=== PATIENT | female | born 1990 | race Caucasian/White ===

== ENCOUNTER 2017-11-08 22:51 | Emergency (ER) | payer BC ==
[~2017-11-08] VITALS: Ht 160 cm; Wt 120.2 kg
[~2017-11-08 22:51] MED LIST: FAMO-90 PO; NAPR375T2 PO; ORPH100T48 PO; TRAM50TA1 PO; ZOLP10TA1 PO
[2017-11-08 22:59] VITALS: BP 135/90
--- NOTE | 2017-11-08 23:03 | NUR ---
TO LOBBY AA/W BED, AMBULATORY, VSS, ERMD NOTED
--- NOTE | 2017-11-09 02:57 | NUR ---
PT AMBULATED TO BED 6
--- NOTE | 2017-11-09 03:00 | NUR ---
27/ CAME IN W C/O LEFT LOWER ABD PAIN RADIAITING TO BACK S/P MECHANICAL FALL ON FRIDAY. ALSO REPORTS SHE WAS SPOTTING AND HAD BLOOD CLOT THIS AM. DENIES N/V/D, FEVER/CHILLS. BS ACTIVE X4, ABD SOFT, ROUND -TENDERNESS. DENIES LOC/HEAD INJURY. LMP 10/05/17, REPORTS SHE MIGHT BE . DENIES PMH
[2017-11-09] MEDS ORDERED: KETOROLAC 15 MG/ML VIAL IM ONE (05:35)
[2017-11-09] MEDS ORDERED: FAMOTIDINE 20 MG TAB PO ONE (05:35)
[2017-11-09] MEDS ORDERED: KETOROLAC 30 MG/ML VIAL IM ONE (05:45)
--- NOTE | 2017-11-09 06:27 | NUR ---
Patient discharged with v/s stable. Written and verbal after care instructions given and explained. Patient alert, oriented and verbalized understanding of instructions. Ambulatory with steady gait. All questions addressed prior to discharge. ID band removed. Patient advised to follow up with PMD. Rx of REGLAN, PEPCID given. Patient educated on indication of medication including possible reaction and side effects. Opportunity to ask questions provided and answered.
[2017-11-09 06:28] VITALS: BP 109/74
== END 2017-11-09 06:27 | disposition home or self-care (01) ==
LOC: MED 22:51
DX: R10.32 Left lower quadrant pain (principal); Z88.8 Allergy status to other drugs, medicaments and biological substances; Z79.899 Other long term (current) drug therapy
CPT/HCPCS: 81002; 81025; 96372; 99283; J1885

== ENCOUNTER 2019-04-07 19:09 | Emergency (ER) | payer SELFPAY ==
[~2019-04-07] VITALS: Ht 160 cm; Wt 120.2 kg
[2019-04-07 19:20] VITALS: BP 150/80
[2019-04-07] MEDS ORDERED: ALUMINUM HYD/MAG/SIMETHICONE 30 ML UDC ONE (21:48)
[2019-04-07] MEDS ORDERED: LIDOCAINE VISCOUS 2% 20 ML UDC ONE (21:48)
[2019-04-07] MEDS ORDERED: DICYCLOMINE HCL LIQUID 10 MG/5 ML UDC ONE (21:48)
[2019-04-07 22:02] LABS: BASOPHILS % (AUTO) 0.4 % (0.0-2.0); EOSINOPHILS # (AUTO) 0.3 K/uL (0-0.4); EOSINOPHILS % (AUTO) 2.7 % (0.0-4.0); HEMATOCRIT 41.8 % (36-48); HEMOGLOBIN 13.8 g/dL (12.0-16.0); LYMPHOCYTES # (AUTO) 3.6 K/uL (2.5-16.5); LYMPHOCYTES % (AUTO) 30.5 % (20.5-51.1); MEAN CORPUSCULAR HEMOGLOBIN 29 pg (27-31); MEAN CORPUSCULAR HGB CONC 33 g/dL (33-37); MEAN CORPUSCULAR VOLUME 87.7 fL (80-94); MONOCYTES # (AUTO) 1.1 K/uL (0.8-1.0); NEUTROPHILS # (AUTO) 6.8 K/uL (1.8-7.7); NEUTROPHILS % (AUTO) 57.4 % (42.2-75.2); PLATELET COUNT (AUTO) 409 K/uL (140-450); RED BLOOD CELL COUNT(AUTO) 4.77 MIL/uL (4.20-5.40); RED CELL DISTRIBUTION WIDTH 12.9 % (11.6-13.7); WHITE BLOOD COUNT (AUTO) 11.9 K/uL (4.8-10.8)
[2019-04-07] MEDS: NACL 0.9% 1,000 ML IV ONE (22:11)
[2019-04-07] MEDS: DICYCLOMINE HCL LIQUID 20 MG, ALUMINUM HYD/MAG/SIMETHICONE 30 ML, LIDOCAINE VISCOUS 2% ... PO ONE ×3 (22:12)
[2019-04-07 22:28] LABS: ALBUMIN 3.6 g/dL (3.4-5.0); CARBON DIOXIDE 26.9 mmol/L (21-32); CREATININE 0.8 mg/dL (0.6-1.3); TOTAL BILIRUBIN 0.2 mg/dL (0.0-1.0)
[2019-04-07 22:29] LABS: ANION GAP 15.9 (8-16); POTASSIUM 4.8 mmol/L (3.5-5.1)
[2019-04-07 23:00] LABS: APPEARANCE,URINE CLEAR (CLEAR); BILIRUBIN,URINE NEGATIVE (NEGATIVE); BLOOD, URINE NEGATIVE (NEGATIVE); COLOR,URINE YELLOW (YELLOW); LEUKOCYTE ESTERASE ,URINE NEGATIVE (NEGATIVE); NITRITE, URINE NEGATIVE (NEGATIVE); UGLUCOSE NEGATIVE (NEGATIVE)
[2019-04-07] MEDS ORDERED: HYDROcodone/APAP 7.5/325 MG 1 TAB PO ONE (23:15)
[2019-04-07] MEDS ORDERED: ONDANSETRON 4 MG/2 ML VIAL IVP ONE (23:15)
[2019-04-07] MEDS: HYDROcodone/APAP 5/325 MG 1 TAB TAB PO ONE (23:50)
[2019-04-07] MEDS: ONDANSETRON 4 MG/2 ML VIAL IVP ONE (23:54)
[2019-04-08] MEDS: KETOROLAC 30 MG/ML VIAL IVP ONE (00:32)
[2019-04-08 06:22] VITALS: BP 102/60
== END 2019-04-08 02:22 | disposition home or self-care (01) ==
LOC: MED 19:09
DX: R10.13 Epigastric pain (principal); R19.7 Diarrhea, unspecified; Z90.49 Acquired absence of other specified parts of digestive tract; Z88.5 Allergy status to narcotic agent; Z79.899 Other long term (current) drug therapy
CPT/HCPCS: 36415; 74176; 80053; 81003; 83690; 84703; 85025; 96361; 96374; 96375; 99284; J1885; J2405; J7030

== ENCOUNTER 2019-09-17 18:03 | Emergency (ER) | payer MEDICAID ==
[~2019-09-17] VITALS: Ht 157.5 cm; Wt 128.8 kg
[2019-09-17 18:27] VITALS: BP 116/79
--- NOTE | 2019-09-17 20:50 | NUR ---
Patient ambulated to chair A. RN evaluating patient at bedside.
--- NOTE | 2019-09-17 21:00 | NUR ---
29 F BIB SELF FOR C/C OF 10/10 R SHOULDER, R NECK, R BACK PAIN AFTER FALLING OFF OF A 4 MEJIA TODAY. R ARM IS RED AND EDEMATOUS UPON VISUALIZATION. REDUCED ROM AT SHOULDER JOINT. PERIPHERAL PULSES ARE EQUAL AND REGULAR. DENIES TAKING ANY OTC MEDICATIONS FOR PAIN. ALLERGIES TO HYDROMORPHONE, DILAUDID NO MED HX NO RX
--- NOTE | 2019-09-17 22:07 | NUR ---
Dr. Mccarthy is evaluating the patient at bedside.
[2019-09-17] MEDS ORDERED: KETOROLAC 30 MG/ML VIAL IM ONE (22:10)
[2019-09-17] MEDS ORDERED: KETOROLAC 30 MG/ML VIAL ONE (22:17)
--- NOTE | 2019-09-17 22:19 | NUR ---
Patient taken to x-ray via wheelchair by tech.
--- NOTE | 2019-09-17 22:20 | NUR ---
PT TAKEN TO RAD VIA WHEELCHAIR
--- NOTE | 2019-09-17 22:27 | NUR ---
GAVE IM TORODOL IN LEFT DELTOID, PER ERMD VERBAL ORDER
--- NOTE | 2019-09-17 22:29 | NUR ---
Patient returned from x-ray. RN re-evaluating the patient at bedside.
[2019-09-17] MEDS ORDERED: HYDROcodone/APAP 10/325 MG 1 TAB TAB PO PRN (23:00)
--- NOTE | 2019-09-17 23:00 | NUR ---
NADR TO IM TORODOL. PAIN IS STILL 12/01
--- NOTE | 2019-09-17 23:00 | NUR ---
PT STILL IN 910 PAIN AFTER IM TORODOL. LINWOOD MADE AWARE.
[2019-09-17] MEDS ORDERED: MORPHINE SULFATE 4 MG/ML SYR IM ONE (23:25)
--- NOTE | 2019-09-17 23:34 | NUR ---
PTS RIGHT ARM WAS PLACED IN A SHOULDER IMOBOLIZER. [facility] [place] [place]
--- NOTE | 2019-09-17 23:39 | NUR ---
Patient discharged with v/s stable. Written and verbal after care instructions given and explained. Patient alert, oriented and verbalized understanding of instructions. Ambulatory with steady gait. All questions addressed prior to discharge. ID band removed. Patient advised to follow up with PMD. Rx of NAPROXEN, NORCO given. Patient educated on indication of medication including possible reaction and side effects. Opportunity to ask questions provided and answered.Pt walks in steady gait, no dizziness or pain noted.
[2019-09-17 23:43] VITALS: BP 127/78
== END 2019-09-17 23:39 | disposition home or self-care (01) ==
LOC: MED 18:03
DX: S46.911A Strain of unspecified muscle, fascia and tendon at shoulder and upper arm level, right arm, initial encounter (principal); M75.101 Unspecified rotator cuff tear or rupture of right shoulder, not specified as traumatic; Z88.6 Allergy status to analgesic agent; Z79.899 Other long term (current) drug therapy; Y03.8XXA Other assault by crashing of motor vehicle, initial encounter; Y93.89 Activity, other specified; Y92.89 Other specified places as the place of occurrence of the external cause; Y99.8 Other external cause status
CPT/HCPCS: 71045; 73000; 73030; 96372; 99284; J1885; J2270

== ENCOUNTER 2021-04-27 20:58 | Emergency (ER) | payer MEDICAID ==
[~2021-04-27] VITALS: Ht 157.5 cm; Wt 121.6 kg
[2021-04-27 21:15] VITALS: BP 129/83
--- NOTE | 2021-04-27 21:17 | NUR ---
TO LOBBY A/W BED AMBULATORY
--- NOTE | 2021-04-27 21:40 | NUR ---
RECEIVED IN BED 8 WITH C/O LLBP RADIATING TO LEFT LOWER ABDOMEN. PT STATES HAS DIFFICULTY SITTING
[2021-04-27] MEDS ORDERED: KETOROLAC 30 MG/ML VIAL IVP ONE (22:50)
[2021-04-27] MEDS ORDERED: IBUP-1801 PO (22:50)
[2021-04-27 23:36] VITALS: BP 129/83
== END 2021-04-27 23:36 | disposition home or self-care (01) ==
LOC: MED 20:58
DX: M54.59 Other low back pain (principal); Z88.5 Allergy status to narcotic agent; Z79.899 Other long term (current) drug therapy
CPT/HCPCS: 81002; 81025; 96374; 99283; J1885

== ENCOUNTER 2022-05-02 11:27 | Emergency (ER) | payer MEDICAID ==
[~2022-05-02] VITALS: Ht 157.5 cm; Wt 122.5 kg
[~2022-05-02 11:27] MED LIST changes: +IBUP-1801 PO; +TRAM-748 PO; -TRAM50TA1 PO
[2022-05-02 11:30] VITALS: BP 135/87
--- NOTE | 2022-05-02 11:50 | NUR ---
31YO FEMALE PT C/O CHEST TIGHTNESS,SOB AND N/V-blood X4DAYS. REPORTS THROAT AND SHARP CHEST PAIN ON COUGH, MOIST COUGH PRESENT. EDSON CLEAR LUNG SOUNDS. RESPIRATIONS EVEN AND UNLABORED. THROAT PINK W/O SWELLING. DENIES FEVER , CHILLS OR RELIEF AFTER ALBUTEROL INHALER . +SICK FAM AT HOME W/ S/S. PT AAOX4 ON BAT PERSON. SON AT BEDSIDE HX: DNIES ALLERGIES: DILAUDID
--- NOTE | 2022-05-02 11:59 | NUR ---
MINDA RODRIGUEZ AT BEDSIDE FOR EVALUATION
[2022-05-02] MEDS ORDERED: ALBUTEROL SULFATE/IPRATROPIU 3 ML SOL IH ONE (12:10)
[2022-05-02] MEDS ORDERED: DEXAMETHASONE 4 MG/ML VIAL PO ONE (12:10)
--- NOTE | 2022-05-02 12:18 | NUR ---
RT AT BEDSIDE
--- NOTE | 2022-05-02 12:22 | NUR ---
LAB AT BEDSIDE
--- NOTE | 2022-05-02 12:29 | NUR ---
PT TAKEN TO XRAY VIA WHEELCHAIR, ACCOMPANIED BY SON
[2022-05-02 12:31] LABS: BASOPHILS # (AUTO) 0.1 K/uL (0.00-0.22); BASOPHILS % (AUTO) 0.7 % (0.0-2.0); EOSINOPHILS # (AUTO) 0.4 K/uL (0-0.4); EOSINOPHILS % (AUTO) 3.2 % (0.0-4.0); HEMATOCRIT 37.1 % (36-48); HEMOGLOBIN 12.7 g/dL (12.0-16.0); LYMPHOCYTES # (AUTO) 2.8 K/uL (2.5-16.5); LYMPHOCYTES % (AUTO) 26.1 % (20.5-51.1); MEAN CORPUSCULAR HEMOGLOBIN 29 pg (27-31); MEAN CORPUSCULAR HGB CONC 34 g/dL (33-37); MEAN CORPUSCULAR VOLUME 85.6 fL (80-94); MONOCYTES # (AUTO) 1.1 K/uL (0.8-1.0); MONOCYTES % (AUTO) 10.6 % (1.7-9.3); NEUTROPHILS # (AUTO) 6.4 K/uL (1.8-7.7); NEUTROPHILS % (AUTO) 59.4 % (42.2-75.2); PLATELET COUNT (AUTO) 373 K/uL (140-450); RED BLOOD CELL COUNT(AUTO) 4.34 MIL/uL (4.20-5.40); RED CELL DISTRIBUTION WIDTH 12.8 % (11.6-13.7); WHITE BLOOD COUNT (AUTO) 10.8 K/uL (4.8-10.8)
[2022-05-02 13:03] LABS: ALBUMIN 3.3 g/dL (3.4-5.0); ANION GAP 12.8 (8-16); ASPARTATE AMINOTRANSFERASE 14 U/L (15-37); CHLORIDE 105 mmol/L (98-107); CREATININE 0.9 mg/dL (0.6-1.3); GFR ARICAN-AMERICAN 93 mL/min (>90); GLUCOSE 107 mg/dL (74-106); POTASSIUM 3.8 mmol/L (3.5-5.1); SODIUM SERUM 139 mmol/L (136-145); TOTAL BILIRUBIN 0.3 mg/dL (0.0-1.0); UREA NITROGEN, BLOOD 9 mg/dL (7-18)
[2022-05-02 13:31] VITALS: BP 108/64
[2022-05-02] MEDS ORDERED: PRED20TA5 PO (13:49)
[2022-05-02] MEDS ORDERED: ALBU0.0912 INH (13:49)
[2022-05-02] MEDS ORDERED: BENZ200C4 PO (13:49)
--- NOTE | 2022-05-02 13:57 | NUR ---
Patient discharged with v/s stable. Written and verbal after care instructions FOR CHEST PAIN, UPPER RESPIRATORY INFECTION, COUGH, BRONCHOSPASM, STREP THROAT AND GENERAL TAMEZ given and explained. Patient alert, oriented and verbalized understanding of instructions. Ambulatory with steady gait. All questions addressed prior to discharge. ID band removed. Patient advised to follow up with PMD. Rx of BENZONATATE, ALBUTEROL SULFATE, PREDNISONE given. Opportunity to ask questions provided and answered.
--- NOTE | 2022-05-02 13:58 | NUR ---
The patient's care was reviewed and supervised by Brinda Valerio RN.
== END 2022-05-02 13:57 | disposition home or self-care (01) ==
LOC: MED 11:27
DX: R07.9 Chest pain, unspecified (principal); J02.9 Acute pharyngitis, unspecified; R51.9 Headache, unspecified; R06.02 Shortness of breath; R19.7 Diarrhea, unspecified; R03.0 Elevated blood-pressure reading, without diagnosis of hypertension; Z20.822 Contact with and (suspected) exposure to COVID-19; J98.01 Acute bronchospasm; R06.2 Wheezing; Z90.49 Acquired absence of other specified parts of digestive tract; Z79.899 Other long term (current) drug therapy; Z79.1 Long term (current) use of non-steroidal anti-inflammatories (NSAID); Z79.891 Long term (current) use of opiate analgesic; Z88.5 Allergy status to narcotic agent; Z88.8 Allergy status to other drugs, medicaments and biological substances
CPT/HCPCS: 36415; 71046; 80053; 83880; 84484; 85025; 85379; 87081; 87426; 87804; 94640; 99285; J1100; 93005

== ENCOUNTER 2023-02-12 17:30 | Emergency (ER) | payer MEDICAID ==
[~2023-02-12] VITALS: Ht 157.5 cm; Wt 124.3 kg
[~2023-02-12 17:30] MED LIST changes: +ALBU0.0912 INH; +BENZ200C4 PO; +PRED20TA5 PO
[2023-02-12 17:47] VITALS: BP 122/79; PULSE 85; RESP 15; TEMP 97.6; O2SAT 96
[2023-02-12] MEDS ORDERED: IBUP-2213 PO (19:13)
[2023-02-12] MEDS ORDERED: BENZ-300 PO (19:13)
[2023-02-12] MEDS ORDERED: PROM118S5 PO (19:13)
[2023-02-12 20:08] LABS: FLU A ANTIGEN negative (NEGATIVE); FLU B ANTIGEN NEGATIVE (NEGATIVE)
== END 2023-02-12 19:34 | disposition home or self-care (01) ==
LOC: MED 17:30
DX: J20.9 Acute bronchitis, unspecified (principal); Z20.822 Contact with and (suspected) exposure to COVID-19; Z79.899 Other long term (current) drug therapy
CPT/HCPCS: 99283